=== PATIENT | male | born 1975 | race Caucasian/White ===

== ENCOUNTER 2020-06-09 09:40 | Emergency (ER) | payer MEDICAID ==
[~2020-06-09] VITALS: Ht 182.9 cm; Wt 89.8 kg
[~2020-06-09 09:40] MED LIST: CIPR500T87 PO; OXYC-302 PO; TAMS0.4C2 PO
[2020-06-09 09:55] VITALS: BP 125/89
[2020-06-09] MEDS ORDERED: ACETAMINOPHEN 500 MG TABLET ONE (10:15)
== END 2020-06-09 10:22 | disposition home or self-care (01) ==
LOC: ED 10:15
DX: K02.9 Dental caries, unspecified (principal); K08.89 Other specified disorders of teeth and supporting structures; F17.200 Nicotine dependence, unspecified, uncomplicated
CPT/HCPCS: 99283